=== PATIENT | female | born 2000 | race Caucasian/White ===

== ENCOUNTER 2024-01-26 05:06 | Outpatient (CLI) | payer OTHER, SELFPAY ==
[2024-01-26 11:14] LABS: Panorama Kit Sent via Fed Ex
[2024-01-26 11:28] LABS: Abs Immature Grans 0.03 10^3/uL (0.0-0.06); Absolute Basophil Count 0.06 10^3/uL (0.0-0.2); Absolute Eosinophil Count 0.13 10^3/uL (0.0-0.7); Absolute Lymphocyte Count 2.71 10^3/uL (1.2-3.4); Absolute Neutrophil Count 7.57 10^3/uL (1.2-6.7); Basophils % 0.5 %; Eosinophils % 1.2 %; HCT 36.7 % (36.0-46.0); HGB 12.8 g/dL (11.2-15.7); Immature Grans % 0.3 %; Lymphocytes % 24.4 %; MCH 32.7 pg (27.0-33.0); MCHC 34.9 % (32.0-36.0); MCV 94 fL (80-95); MPV 12.3 fL (8.0-11.0); Monocytes % 5.4 %; Neutrophils % 68.2 %; Platelet Count 197 10^3/uL (130-400); RBC 3.92 10^6/uL (3.93-5.22); RDW 12.1 % (11.7-14.6); RDW-SD 41.6 fL
[2024-01-26 12:03] LABS: Glucose,1 Hr (Glucola) 140 mg/dL (80-140)
[2024-01-26 21:08] LABS: Hepatitis B Surface Ag Negative (Negative)
[2024-01-26 21:39] LABS: Hepatitis C Ab w Rflx HCV PCR Negative (Negative)
[2024-01-26 22:08] LABS: HIV-1/2 Ag & Ab Screen Negative (Negative)
[2024-01-27 13:04] LABS: Varicella IgG Antibody Positive (See Note)
[2024-01-27 13:13] LABS: Rubella IgG Ab (UVM) Positive (See Note)
[2024-01-29 15:00] LABS: Syphilis IgG w/Reflex Nonreactive (Nonreactive)
[2024-02-07 16:44] LABS: Specimen WB Whole Blood
[2024-02-13 17:59] LABS: Result Summary NEGATIVE; Specimen WB Whole Blood
== END 2024-01-26 05:07 | disposition home or self-care (01) ==
LOC: LBO 05:07
PROVIDERS: PCP Nurse Practitioner Pediatrics; Visit Provider Advanced Practice Midwife
DX: Z34.91 Encounter for supervision of normal pregnancy, unspecified, first trimester (principal); Z3A.11 11 weeks gestation of pregnancy
CPT/HCPCS: 36415; 81220; 81222; 81329; 82950; 86787; 86803; 86850; 86900; 86901; 87340; 87389; 85025; 86762; 86780

== ENCOUNTER 2024-01-26 10:35 | Outpatient (REF) | payer OTHER, SELFPAY ==
--- NOTE | 2024-01-26 10:40 | PAPFT_PTH ---
PATIENT: Keanu Love LOC: [facility] U#:[id number] AGE/SX: 23/F ROOM: RE01/26/[address]: Kecia Valadez : 2000 BED: DIS: 01/26/2024 SPEC #: [id number] RECD: 01/26/24 13:03 STATUS: TONEY REQ #: [id number] MARIA EUGENIA: 01/26/24 10:[address]: Kecia Valadez DEPT: [facility] Cytology RECD BY: Angela Long ENTERED: 01/26/24 13:03 SP TYPE: PAPFT OTHR DR: Nyasia Farfan Tissues: 1 - CX/ENDOCX FOR PAP SMEARS Procedures: PAP THIN PREP/UVM Screening Comments: [id number]
[2024-01-27 13:07] LABS: Chlamydia Result Negative (Negative); GC Result Negative (Negative)
== END 2024-01-26 10:36 | disposition home or self-care (01) ==
LOC: LBN 10:35
PROVIDERS: PCP Nurse Practitioner Pediatrics; Visit Provider Advanced Practice Midwife
DX: Z34.90 Encounter for supervision of normal pregnancy, unspecified, unspecified trimester (principal); B96.89 Other specified bacterial agents as the cause of diseases classified elsewhere
CPT/HCPCS: 87491; 87591; 88142; 87086; 87480; 87510; 87660

== ENCOUNTER 2024-02-27 05:52 | Outpatient (CLI) | payer OTHER, SELFPAY ==
[2024-02-27 09:56] LABS: Glucose 1 Hour 103 mg/dL
[2024-02-27 11:32] LABS: Glucose 3 Hour 113 mg/dL
== END 2024-02-27 05:53 | disposition home or self-care (01) ==
LOC: LBO 05:52
PROVIDERS: PCP Nurse Practitioner Pediatrics; Visit Provider Advanced Practice Midwife
DX: Z34.91 Encounter for supervision of normal pregnancy, unspecified, first trimester (principal); Z3A.15 15 weeks gestation of pregnancy
CPT/HCPCS: 36415; 82951

== ENCOUNTER 2024-05-01 16:14 | Outpatient (CLI) | payer OTHER, SELFPAY ==
[2024-05-03 05:01] LABS: Bile Acids, Total 2 mcmol/L (<=10)
== END 2024-05-01 16:15 | disposition home or self-care (01) ==
LOC: LBO 16:16
PROVIDERS: PCP Nurse Practitioner Pediatrics; Visit Provider Advanced Practice Midwife
DX: L29.8 Other pruritus (principal); Z34.92 Encounter for supervision of normal pregnancy, unspecified, second trimester
CPT/HCPCS: 36415; 82239

== ENCOUNTER 2024-05-23 03:43 | Outpatient (CLI) | payer OTHER, SELFPAY ==
[2024-05-23 07:47] LABS: HCT 38.7 % (36.0-46.0); HGB 12.9 g/dL (11.2-15.7); MCH 31.4 pg (27.0-33.0); MCHC 33.3 % (32.0-36.0); MCV 94 fL (80-95); MPV 10.9 fL (8.0-11.0); Platelet Count 222 10^3/uL (130-400); RBC 4.11 10^6/uL (3.93-5.22); RDW 12.4 % (11.7-14.6); RDW-SD 42.8 fL; WBC 13.62 10^3/uL (4.4-10.8)
[2024-05-23 09:28] LABS: Glucose 1 Hour 177 mg/dL
[2024-05-23 11:33] LABS: Glucose 3 Hour 130 mg/dL
== END 2024-05-23 03:44 | disposition home or self-care (01) ==
LOC: LBO 03:43
PROVIDERS: PCP Nurse Practitioner Pediatrics; Visit Provider Advanced Practice Midwife
DX: Z34.93 Encounter for supervision of normal pregnancy, unspecified, third trimester (principal)
CPT/HCPCS: 36415; 85027; 82951

== ENCOUNTER 2024-07-17 10:33 | Outpatient (REF) | payer OTHER, SELFPAY | END 2024-07-17 10:34 | disposition home or self-care (01) | LOC: LBN 10:33 | PROVIDERS: PCP Nurse Practitioner Pediatrics; Visit Provider Advanced Practice Midwife | DX: O26.893 Other specified pregnancy related conditions, third trimester (principal); N89.8 Other specified noninflammatory disorders of vagina; Z34.93 Encounter for supervision of normal pregnancy, unspecified, third trimester | CPT/HCPCS: 87081; 87480; 87510; 87660 ==

== ENCOUNTER 2024-08-09 15:27 | Inpatient (IN) | payer OTHER, SELFPAY ==
[2024-08-09] VITALS (16 sets, daily range): BP systolic 119–127; BP diastolic 76–86; PULSE 63–85; RESP 17; TEMP 36.5–36.9; O2SAT 99–100
[2024-08-09 15:45] LABS: HCT 33.6 % (36.0-46.0); HGB 10.9 g/dL (11.2-15.7); MCH 28.4 pg (27.0-33.0); MCHC 32.4 % (32.0-36.0); MCV 88 fL (80-95); MPV 11.2 fL (8.0-11.0); Platelet Count 243 10^3/uL (130-400); RBC 3.84 10^6/uL (3.93-5.22); RDW 13.3 % (11.7-14.6); RDW-SD 42.5 fL; WBC 12.35 10^3/uL (4.4-10.8)
[2024-08-09] MEDS: Ondansetron 4 MG/2 ML VIAL IVP (16:19)
[2024-08-09] MEDS: Normal Saline Flush 10 ML SYR IVP ×2 (16:19→21:11)
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
--- NOTE | 2024-08-09 16:49 | PDOC.NST_ITS ---
Date of service: 08/09/24 Time of Service: 16:49 NST Evaluation Reason for NST Reasons for Nonstress Test: FALSE LABOR Gestational Age Gestational Age in Weeks and Days: 39 Weeks and 2Days Test and Monitor Explained Test/Monitor Explained: Test Explained, Monitor Explained and Patient Verbalized Understanding Vital Signs Blood Pressure: 119/76 Pulse: 71 Temperature: 98.5 F Urine Results Urine Protein: Positive Urine Ketones: Positive Urine Glucose: Negative Urine Blood: Positive NST Information Date on Monitor: 08/09/24 Time on Monitor: 12:29 Date off Monitor: 08/09/24 Time off Monitor: 13:06 Total Time on Monitor: 37 NST Interventions: PO Hydration Contraction Frequency: 6 NST Evaluation Patient States Movement: Present FHR Baseline: 135 Variability: Moderate 6-25 bpm Accelerations: 15x15 Decelerations: None NST Results: Reactive Note Ultrasound Done: N/A. NST Note Note: Keanu called at 1130 and reported stronger more regular contractions. Upon arrival at the center, her contractions were every 6-7 minutes and moderate strength. She was examined by Aletha Zuleta RN and was 2 cms/60% and - 3. She was observed until 1530 and reexamined by RN and found to be 3 cms/70% and -3. She was admitted in early labor. NST Reviewed and Verified by: Kecia Valadez
[2024-08-09] MEDS: valACYclovir 1,000 MG TAB 1000 MG PO (21:11)
--- NOTE | 2024-08-09 22:21 | PGE_ITS ---
Date of service: 08/09/24 Time of Service: 22:21 Pelvic Exam Comments: Pelvic exam deferred per patient preference. Exam at 1800 was 3 cms/ 90%/- 1//posterior/soft. Contractions Monitor Mode: Palpation Contraction Frequency(min): every 3-5 Contraction Duration(sec): 50-60 Intensity: Moderate/Strong Fetus A Monitor: Doppler Heart Rate Baseline: 13 Decelerations: None Assessment and Plan Assessment and plan (1) Spontaneous onset of labor: Status: Acute Assessment and plan: Comfort measures. Offered AROM but Keanu declines at this time. Anticipate . Will prepare for epidural analgesia if indicated. Objective Abnormal lab results 08/09/24 Range/Units 13:35 WBC 12.35 H (4.4-10.8) 10^3/uL RBC 3.84 L (3.93-5.22) 10^6/uL Hgb 10.9 L (11.2-15.7) g/dL Hct 33.6 L (36.0-46.0) % MPV 11.2 H (8.0-11.0) fL Temp Pulse Resp BP Pulse Ox 98.4 F 85 17 124/78 99 08/09/24 20:30 08/09/24 20:30 08/09/24 17:08 08/09/24 20:30 08/09/24 17:08 Laboratory Results WBC 12.35 10^3/uL (4.4-10.8) H 08/09/24 13:35 RBC 3.84 10^6/uL (3.93-5.22) L 08/09/24 13:35 Hgb 10.9 g/dL (11.2-15.7) L 08/09/24 13:35 Hct 33.6 % (36.0-46.0) L 08/09/24 13:35 MCV 88 fL (80-95) 08/09/24 13:35 MCH 28.4 pg (27.0-33.0) 08/09/24 13:35 MCHC 32.4 % (32.0-36.0) 08/09/24 13:35 RDW 13.3 % (11.7-14.6) 08/09/24 13:35 Plt Count 243 10^3/uL (130-400) 08/09/24 13:35 MPV 11.2 fL (8.0-11.0) H 08/09/24 13:35 ABO/Rh A Positive 08/09/24 13:35 Antibody Screen NEGATIVE 08/09/24 13:35 Vital Signs Reviewed: Yes Subjective Patient Reports: New Complaints Interval history since last seen: Keanu reports that contractions are more painful and she is experiencing back pain. She is fatigued. She requested nitrous oxide and is receiving good relief from that. She is considering epidural analgesia but is not ready for that now.She is drinking PO fluid well. Results Hemoglobin/Hematocrit: Hgb 10.9 g/dL (11.2-15.7) L 08/09/24 13:35 Hct 33.6 % (36.0-46.0) L 08/09/24 13:35 Abnormal Lab Findings: Abnormal Labs 08/09/24 13:35 WBC 12.35 H RBC 3.84 L Hgb 10.9 L Hct 33.6 L MPV 11.2 H
[2024-08-09] MEDS: Lactated Ringers 1,000 ML 999 ML IV (23:32)
--- NOTE | 2024-08-09 23:42 | ANES.PREOP_ITS ---
General Info Date of Service Date Performed: 08/09/24 Height: 5 ft 1 in Weight: 78.925 kg Body Mass Index (BMI): 32.8 Meds Allergies and Home Medications Allergies Allergy/AdvReac Type Severity Reaction Status Date / Time amoxicillin Allergy Intermediate hives Verified 08/07/24 09:58 Home Medication ?Medication ?Instructions ?Recorded sumatriptan succinate 25 mg tablet See Rx Instructions PO .COMPLEX 12/23/23 (Imitrex) mv-mn no.97-folic 180 mcg-dha 25 1 tab PO 1XD 01/10/24 mg-herb no.293 25 mg chewable tablet (Alive Daily Support ) valacyclovir 500 mg tablet 500 mg PO DAILY PRN 02/21/24 ondansetron 4 mg disintegrating 4 mg PO Q6H #60 tabs 03/12/24 tablet Current Visit Medications: Current Medications Generic Name Dose Route Start Last Admin Trade Name Freq PRN Reason Stop Dose Admin Fentanyl/Ropivacaine 200 ml 08/09/24 23:15 Fentanyl/Ropivacaine 2 Mcg/Ml And 0.1% 200 Ml Cadd Cassette EP DIRECTED KENTRELL IV Miscellaneous Supplies 1 each 08/09/24 15:30 Iv Access IV DIRECTED KENTRELL Ondansetron HCl 4 mg 08/09/24 15:55 08/09/24 16:19 Ondansetron 4 Mg/2 Ml Vial IVP 4 mg Q4H PRN PRN Administration Sodium Chloride 0 ml 08/09/24 15:27 08/09/24 16:19 Normal Saline Flush 10 Ml Syr IVP 10 ml PRN PRN Administration Sodium Chloride 0 ml 08/09/24 20:00 08/09/24 21:11 Normal Saline Flush 10 Ml Syr IVP 10 ml BID KENTRELL Administration Sodium Chloride 0 ml 08/09/24 15:27 Normal Saline 10 Ml Vial IJ DIRECTED PRN PFSH Active Problems Active Problems: Problem Status Onset Code Spontaneous onset of labor Acute Medical History Medical History (Updated 08/09/24 @ 16:42 by Kecia Valadez CNM) Left hip pain after a fall at work Migraine Family history of diabetes mellitus in mother Family history of congenital heart defect pt's brothers x2 Ebstein anomaly (abd tricuspid valve) Genital herpes simplex virus (HSV) infection in mother affecting HSV I genital, 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 History of PCOS Missed menses Hirsutism Irregular menstruation, unspecified Skin cyst on chest, no complications Depression Anxiety Tobacco Smoking/Tobacco Use Status: Never Second hand exposure: Yes Alcohol Alcohol Intake: current Alcohol intake frequency: holidays/special occasions only Substance Use Substance use: Never Substance use type: does not use Prental History History 2 1 Para 0 Hx # Term Pregnancies 0 Multiple births 0 Hx # Pregnancies 0 Ectopic pregnancies 0 AB induced 0 Hx Number of Living Children 0 AB spontaneous 0 Vital Signs and Lab Results Vital Signs Most Recent Vital Signs in EMR: Most Recent Vital Signs Temp Pulse Resp BP Pulse Ox 36.5 C 70 17 121/79 100 08/09/24 22:27 08/09/24 23:41 08/09/24 17:08 08/09/24 23:27 08/09/24 23:41 Lab Results 08/09/24 13:35 Blood Type / Crossmatch: 2 Antibody Screen NEGATIVE 08/09/24 Complete Blood Count: 2 White Blood Count 12.35 10^3/uL (4.4-10.8) H 08/09/24 13:35 Red Blood Count 3.84 10^6/uL (3.93-5.22) L 08/09/24 13:35 Hemoglobin 10.9 g/dL (11.2-15.7) L 08/09/24 13:35 Hematocrit 33.6 % (36.0-46.0) L 08/09/24 13:35 Platelet Count 243 10^3/uL (130-400) 08/09/24 13:35 Complete Metabolic Panel: 2 No Data to Display Liver Function Panel: 2 No Data to Display Coagulation Panel: 2 No Data to Display Cardiac Panel: 2 No Data to Display Arterial Blood Gas: 2 No Data to Display Venous Blood Gas: 2 No Data to Display Pancreas Panel: 2 No Data to Display Thyroid Panel: 2 No Data to Display Infectious Disease: 2 No Data to Display Blood Cultures: 2 No Data to Display Toxicology Panel: 2 No Data to Display Panel: 2 No Data to Display Anesthesia Assessment and Plan Anesthesia History Personal History: No History of Anesthesia Complications Family History: No Family History of Anesthesia Complications Exercise Tolerance Exercise Tolerance: Metabolic Equivalents>4 Pertinent Negatives Pertinent Negatives: No Symptoms of GERD, No Major Cardiovascular Symptoms or Complaints, No Major Pulmonary Symptoms or Complaints and No History of CVA/TIA Cardiac & Pulmonary Exam Cardiac Exam: Normal S1/S2 Heart Sounds Pulmonary Exam: Clear Bilateral Breath Sounds Implantable Cardiac Device Does patient have a Pacemaker or an ICD?: No Airway Exam Known Difficult Airway: No Mallampati Class: 3 Mouth Opening: Normal (> 3cm) Thyromental Distance: Greater than 3 cm Neck Range of Motion: Full ROM Neck Circumference: Normal Teeth Condition: Generalized Poor Dentition, Loose or Chipped and Dental Caries ASA Classification ASA Score: ASA 2 Emergency Case?: No NPO Status NPO Status: NPO Clears >2 hours, Solids >8 hours Status Status: Confirmed Anesthesia Plan Resuscitation Status: Full Code Anesthesia Technique: Epidural Anesthesia Airway Planned: Natural Airway Pain Management: Surgeon and patient request nerve block Monitors Used: Standard Monitors
[2024-08-10] VITALS (67 sets, daily range): BP systolic 95–142; BP diastolic 56–95; PULSE 62–112; RESP 12–18; TEMP 36.5–36.9; O2SAT 85–100; BMI 32.8
--- NOTE | 2024-08-10 00:28 | W.ANESNEU ---
Epidural/Spinal Catheter Date Performed: 08/10/24 Procedure Start: 00:05 Procedure Stop: 00:20 Requesting Provider: Kecia Valadez Procedure Location: Obstetrics Reason Performed: Labor Epidural Standard Monitors Applied: Blood Pressure and SpO2 Patient Position: Sitting Sedation Given (Indicate Dose Given): No Sedation given Patient Mental Status: Awake Sterility: Hand Hygiene, Surgical Cap, Surgical Mask, Sterile Gloves and Chlorhexidine Procedure Location: L4-L5 Interspace Epidural Needle: Tuohy 17 Guage Needle Length: 3.5 Inch Needle Approach: Midline Epidural Procedure: Skin Prepped, Sterile Drape Placed, 1% Lidocaine to skin and subcutaneous tissue with 25G needle, Tuohy Needle placed, POLINA to Saline Used, Epidural Catheter Placed, Negative Heme, Negative CSF Flow and Tuohy Needle Removed Catheter Placed?: Catheter Placed Test Dose (Indicate Dose Given): 5ml 1.5% Lidocaine with 1:200K Epinephrine Given and Negative Test Dose Loss of Resistance Depth (cm): 7 Catheter depth at skin (cm): 12 Dressing: Sorbaview Dressing Placed, Mastisol Used and Dressing reinforced with Tape Epidural Provider Bolus (Indicate Dose Given): Total bolus dose given in 3-5 ml divided doses and Total Ropivacaine 0.1% with Fentanyl 2mcg/ml Given from pump. (ml) Dose:: 10 Additives (Indicate Dose Given ): None Infusion Medication: Medication Infusion Began Medication Infusion: Ropivacaine 0.1% with Fentanyl 2mcg/ml Maintenance Infusion Rate (ml/hour): 10 PCEA Bolus Dose (ml): 5 Block Level: N/A Paresthesia: None Ultrasound: Not Used Number of Attempts (See previous attempts in note section): 1 Procedure Tolerated: No Complications and Patient tolerated well Procedure Outcome: Successful Performed By: Tae Sanchez
--- NOTE | 2024-08-10 00:40 | W.PM.OBNL1 ---
Date of service: 08/10/24 Time of Service: 00:40 Informed Consent Informed Consent: Other (AROM) Pelvic Exam Dilation: 4 Effacement (%): 90 station: -1 Cervix Position: posterior Consistency: soft Vaginal Exam Presentation: Cephalic Contractions Monitor Mode: External Contraction Frequency(min): every 3 minutes Contraction Duration(sec): 60-70 Intensity: Moderate Fetus A Monitor: External (US) Heart Rate Baseline: 120 Presentation: Cephalic Variability: Moderate (6-25 BPM) Categories: Category I FHR Rhythm: Regular Accelerations: 15 X 15 Decelerations: None Amniotic Membrane Status: Ruptured Rupture Method: Artifical Amniotic Fluid: Clear Amount: moderate Date of Membrane Rupture: 08/10/24 Time of Membrane Rupture: 00:35 Assessment and Plan Assessment and plan (1) Spontaneous onset of labor: Status: Acute Assessment and plan: Rest encouraged and anticipate . Objective Abnormal lab results 08/09/24 Range/Units 13:35 WBC 12.35 H (4.4-10.8) 10^3/uL RBC 3.84 L (3.93-5.22) 10^6/uL Hgb 10.9 L (11.2-15.7) g/dL Hct 33.6 L (36.0-46.0) % MPV 11.2 H (8.0-11.0) fL Temp Pulse Resp BP Pulse Ox 97.7 F 68 17 115/77 100 08/09/24 22:27 08/10/24 00:38 08/09/24 17:08 08/10/24 00:36 08/10/24 00:38 Laboratory Results WBC 12.35 10^3/uL (4.4-10.8) H 08/09/24 13:35 RBC 3.84 10^6/uL (3.93-5.22) L 08/09/24 13:35 Hgb 10.9 g/dL (11.2-15.7) L 08/09/24 13:35 Hct 33.6 % (36.0-46.0) L 08/09/24 13:35 MCV 88 fL (80-95) 08/09/24 13:35 MCH 28.4 pg (27.0-33.0) 08/09/24 13:35 MCHC 32.4 % (32.0-36.0) 08/09/24 13:35 RDW 13.3 % (11.7-14.6) 08/09/24 13:35 Plt Count 243 10^3/uL (130-400) 08/09/24 13:35 MPV 11.2 fL (8.0-11.0) H 08/09/24 13:35 ABO/Rh A Positive 08/09/24 13:35 Antibody Screen NEGATIVE 08/09/24 13:35 Subjective Patient Reports: No new Complaints Interval history since last seen: Received epidural placed by Tae Sanchez CRNA with good effect. Results Hemoglobin/Hematocrit: Hgb 10.9 g/dL (11.2-15.7) L 08/09/24 13:35 Hct 33.6 % (36.0-46.0) L 08/09/24 13:35 Abnormal Lab Findings: Abnormal Labs 08/09/24 13:35 WBC 12.35 H RBC 3.84 L Hgb 10.9 L Hct 33.6 L MPV 11.2 H
[2024-08-10] MEDS: Oxytocin/Normal Saline 30 UNIT/500 ML BAG 95 UNITS IV (04:53)
--- NOTE | 2024-08-10 05:33 | W.OBDELIVERY ---
Date of service: 08/10/24 Time of Service: 05:33 OB Labor/ Delivery Information Baby A Delivery Delivery Method: Spontaneaous Presentation: Cephalic Vertex Position: Left Occipital Anterior Cord Description-Baby A: 3 Vessels Amniotic Fluid: Clear Estimated Blood Loss: 250 Delivery Outcome: Liveborn Transferred: Remains with Mother Note: Keanu rested and had an urge to push at 0340. She was found to have an anterior rim and +2 station. The rim was reduced easily with one push. FHTs 120s during first stage of labor. FHTs 120s in second stage. She progressed to full dilation and began pushing. Second stage huddle was done. Spontaneous delivery of female infant delivered in FELIX position. There was a hand presenting with the baby's head. Baby was placed on mother's abdomen and dried and stimulated. Spontaneous cry. Cord was clamped and cut by the baby's father. The placenta delivered spontaneously and appears to by intact with a three vessel cord. Pitocin 30 units IV was administered before delivery of the placenta. The perineum was inspected and it was intact with bilateral periurethral abrasions and a left hymenal abrasion which were not bleeding and did not require repair.. The baby did breastfeed. After delivery, Mother and baby and father of the baby were stable and bonding well in the delivery room and there were no complications. Providers Nurse Proposal Specialist: Kecia Valadez Bobbin Sorter: Tae Sanchez Nurse: Twila Koenig Nurse: Nayely Blackwood Labor/Delivery Information Number of Babies in Womb: 1 Steroids Given: None Reason Steroids Not Administered: N/A Group Beta Strep: Negative Antibiotics Administered: No Rubella Status: Immune Blood Type: A+ Varicella Immunity: Immune Medication in Delivery: No Born En Route: No Maternal Complications: None Shoulder Dystocia: No Stages of Labor Onset of Labor Date: 08/09/24 Onset of Labor Time: 12:00 Complete Dilatation Date: 08/10/24 Complete Dilatation Time: 04:00 Labor - Stage 1 Duration: 16 hours and 0 minutes ROM Baby A: 08/10/24 ROM Baby A: 00:35 ROM Total Time- Baby A: [id number] Delivery Date-Baby A: 08/10/24 Infant Delivery Time-Baby A: 04:51 Labor Stage 2 Duration: 51 minutes Placenta Delivery Date-Baby A: 08/10/24 Placenta Delivery Time-Baby A: 04:58 Labor-Stage 3 Duration: 7 minutes Total Length of Labor-Baby A: 16 hours and 51 minutes Placenta Cultured: No Placenta Status: Delivered Baby A Gender: Female Gestational Status: Term (39-41.6 wks) Gestational Age in Weeks/Days: 39 Weeks and 3 Days Score-1 Minute Interval(Baby A) Heart Rate-1 minute: 100 BPM or Greater Respiratory Effort- 1 minute: Spontaneous/Strong Cry Muscle Tone-1 minute: Active Movement Reflex Response-1 minute: Prompt Response Color-1 minute: Bluish Hands or Feet Total Score-1 minute: 9 Score-5 Minute Interval(Baby A) Heart Rate- 5 minute: 100 BPM or Greater Respiratory Effort-5 minute: Spontaneous/Strong Cry Muscle Tone-5 minute: Active Movement Reflex Response-5 minute: Prompt Response Color-5 minute: Bluish Hands or Feet Total Score- 5 minute: 9
--- NOTE | 2024-08-10 15:25 | W.ANESPOSTOP ---
Postoperative Evaluation Date, Time and Location Date Performed: 08/10/24 Time Performed: 15:25 Patient Location: Obstetrics Vital Signs Most Recent Imported Vital Signs: Most Recent Vital Signs Temp Pulse Resp BP Pulse Ox 36.7 C 65 18 111/74 97 08/10/24 10:50 08/10/24 10:50 08/10/24 10:50 08/10/24 10:50 08/10/24 10:50 Pain Score Most Recent Pain Score: Most Recent Pain Score Pain Level 4 08/09/24 13:18 Assessment Mental Status: Awake (Alert & Oriented to Patient Baseline) Airway and Respiratory Function: Patent airway with normal (patient baseline) respiratory exam Cardiovascular Function: Hemodynamically Stable Hydration Status: Adequately Hydrated Nausea & Vomiting: No Nausea or Vomiting Pain: Pt. Denies Any Pain Peripheral Nerve Block: Other (Epidural appropriately resolved, denied complaint, denied headache, denied backpain. Per RN catheter removed with tip intact.) Postoperative Comments:: Patient resting comfortably and . Denied questions or concerns.
[2024-08-10] MEDS: Ibuprofen 600 MG TAB PO (16:08)
[2024-08-10] MEDS: Docusate Sodium 100 MG CAP PO (16:08)
[2024-08-10] MEDS: Acetaminophen 325 MG TAB 650 MG PO (16:09)
[2024-08-11 03:02] VITALS: BP 101/56; PULSE 80; RESP 18
[2024-08-11] MEDS: Acetaminophen 325 MG TAB 650 MG PO ×2 (08:22→22:31)
[2024-08-11] MEDS: Ibuprofen 600 MG TAB PO ×2 (08:22→22:31)
[2024-08-11 08:27] VITALS: BP 101/78; PULSE 85; RESP 16; TEMP 36.7; O2SAT 100
--- NOTE | 2024-08-11 10:14 | W.PM.OBPNV1 ---
Date of service: 08/11/24 Time of Service: 10:14 Assessment and Plan Assessment and plan (1) Normal spontaneous vaginal delivery: Status: Acute Assessment and plan: Patient day #1 status postnormal spontaneous vaginal delivery of a viable female infant over an intact perineum with a first-degree laceration per our midwifery service. Overall doing well. Anticipate discharge home tonight, or tomorrow. All questions answered. Exam Physical Exam Vital signs: Temp Pulse Resp BP Pulse Ox 98.1 F 85 16 101/78 100 08/11/24 08:27 08/11/24 08:27 08/11/24 08:27 08/11/24 08:27 08/11/24 08:27 Vital Signs Reviewed: Yes Constitutional Comments: Patient seen this morning. Overall doing well. Unsure as to whether she wants to be discharged home today, or tomorrow. Working on breast-feeding. Resting appropriately. Conversation had regarding nutrition, activity, contraception. Undecided on contraceptive management. HEENT Exam HEENT Exam: Normal Neck Exam Neck Exam: Normal Respiratory Exam Respiratory Exam: Normal Cardiovascular Exam Cardiovascular Exam: Normal Abdominal Exam Comments: Soft and nontender Fundal Exam Fundus: Below Umbilicus and Firm Extremities Exam Extremity Exam: Normal; negative Calf Tenderness Results Hemoglobin/Hematocrit: Hgb 10.9 g/dL (11.2-15.7) L 08/09/24 13:35 Hct 33.6 % (36.0-46.0) L 08/09/24 13:35 Abnormal Lab Findings: Abnormal Labs 08/09/24 13:35 WBC 12.35 H RBC 3.84 L Hgb 10.9 L Hct 33.6 L MPV 11.2 H
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
[2024-08-11 19:30] VITALS: BP 109/73; PULSE 82; TEMP 36.8
[2024-08-12 07:30] VITALS: BP 104/72; PULSE 81; RESP 16; TEMP 36.6; O2SAT 99
[2024-08-12] MEDS: Ibuprofen 600 MG TAB PO (07:40)
[2024-08-12] MEDS: Acetaminophen 325 MG TAB 650 MG PO (07:40)
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
== END 2024-08-12 12:55 | disposition home or self-care (01) | DRG 806 ==
LOC: BCD 15:32 → OBS 15:32
PROVIDERS: Admitting Provider Advanced Practice Midwife; PCP Nurse Practitioner Pediatrics; Visit Provider Advanced Practice Midwife
DX: O99.284 Endocrine, nutritional and metabolic diseases complicating childbirth (principal); O98.32 Other infections with a predominantly sexual mode of transmission complicating childbirth; Z37.0 Single live birth; O99.354 Diseases of the nervous system complicating childbirth; Z3A.39 39 weeks gestation of pregnancy; E28.2 Polycystic ovarian syndrome; A60.00 Herpesviral infection of urogenital system, unspecified; O71.82 Other specified trauma to perineum and vulva; G43.909 Migraine, unspecified, not intractable, without status migrainosus; E86.0 Dehydration; O75.89 Other specified complications of labor and delivery
CPT/HCPCS: 59025; 85027; 86850; 86900; 86901; G0378; J2405